=== PATIENT | male | born 1960 | race African-American/Black ===

== ENCOUNTER 2020-01-08 18:41 | Emergency (ER) | payer OTHER ==
[~2020-01-08] VITALS: Ht 185.4 cm; Wt 97.3 kg
[2020-01-08 18:41] VITALS: BP 123/75
[2020-01-08] MEDS ORDERED: METF-960 PO (18:56)
[2020-01-08 18:59] LABS: GLUCOSE,POINT OF CARE 146 MG/DL (70-110)
== END 2020-01-08 21:31 | disposition home or self-care (01) ==
LOC: EMS 18:42
DX: J11.1 Influenza due to unidentified influenza virus with other respiratory manifestations (principal); Z79.84 Long term (current) use of oral hypoglycemic drugs

== ENCOUNTER 2020-08-14 02:27 | Emergency (ER) | payer OTHER ==
[~2020-08-14] VITALS: Ht 188 cm; Wt 102.3 kg
[~2020-08-14 02:27] MED LIST: METF-960 PO
[2020-08-14] MEDS ORDERED: LORazepam 2 MG/ML VIAL IVP ONE (03:00)
[2020-08-14] MEDS ORDERED: SODIUM CHLORIDE 0.9% 1,000 ML IV ONE (03:00)
[2020-08-14] MEDS ORDERED: PERTUSS(ACELL),DIPH,TET VAC/PF 0.5 ML VIAL IM ONE (03:00)
[2020-08-14] MEDS ORDERED: SODIUM CHLORIDE 0.9% 250 ML IRRIG SOLUTION BOTTLE IRRIG ONE (03:00)
[2020-08-14 03:27] LABS: BASOPHILS % (AUTO) 0.7 % (0.0-2.0); EOSINOPHILS % (AUTO) 4.6 % (1.0-6.0); HEMATOCRIT 44.2 % (41-53); HEMOGLOBIN 14.7 g/dL (13.5-17.5); LYMPHOCYTES # (AUTO) 2.4 K/uL (1.0-4.8); MEAN CORPUSCULAR HGB CONC 33.3 G/dL (31.0-37.0); MEAN CORPUSCULAR VOLUME 93 fL (80-100); MONOCYTES # (AUTO) 0.5 K/uL (0.1-1.0); NEUTROPHILS # (AUTO) 3.3 K/uL (1.8-7.7); NEUTROPHILS % (AUTO) 50.7 % (40.0-70.0); PLATELET COUNT (AUTO) 176 K/uL (150-450); RED BLOOD CELL COUNT(AUTO) 4.75 MIL/uL (4.50-5.90); RED CELL DISTRIBUTION WIDTH 12.7 % (11.5-14.5)
[2020-08-14 03:38] LABS: PROTHROMBIN TIME 10.6 SEC (9.4-11.6)
[2020-08-14 04:01] LABS: ALANINE AMINOTRANSFERASE 25 U/L (12-78); ALKALINE PHOSPHATASE 64 U/L (46-116); ASPARTATE AMINOTRANSFERASE 13 U/L (15-37); BILIRUBIN,TOTAL 0.2 mg/dL (0.1-1.0); CARBON DIOXIDE 22 mmol/L (22-29); CREATININE 0.97 mg/dL (0.60-1.30); GLOMERULAR FILTR. RATE CALC > 60 mL/min (>60); GLUCOSE,RANDOM 158 mg/dL (70-110); TOTAL PROTEIN, SERUM 7.8 g/dL (6.4-8.2); UREA NITROGEN, BLOOD 17 mg/dL (7-18)
[2020-08-14 04:09] LABS: ANION GAP 13 mmol/L (8-16); CHLORIDE 100 mmol/L (98-107); POTASSIUM 3.7 mmol/L (3.5-5.1); SODIUM SERUM 135 mmol/L (136-145)
[2020-08-14] MEDS ORDERED: LIDOCAINE 1%/EPI 1:200,000/PF 10 ML VIAL INJ ONE (06:15)
[2020-08-14 06:49] VITALS: BP 120/71
[2020-08-14 07:11] LABS: GLUCOSE,POINT OF CARE 90 MG/DL (70-110)
== END 2020-08-14 07:37 | disposition home or self-care (01) ==
LOC: EMS 02:27
DX: S01.01XA Laceration without foreign body of scalp, initial encounter (principal); F10.129 Alcohol abuse with intoxication, unspecified; E11.9 Type 2 diabetes mellitus without complications; Z79.84 Long term (current) use of oral hypoglycemic drugs; W01.0XXA Fall on same level from slipping, tripping and stumbling without subsequent striking against object, initial encounter; Y93.89 Activity, other specified; Y92.89 Other specified places as the place of occurrence of the external cause; Y99.8 Other external cause status; Y90.8 Blood alcohol level of 240 mg/100 ml or more
CPT/HCPCS: 12005; 36415; 70450; 72125; 80053; 82962; 84484; 85025; 85610; 85730; 90471; 90715; 93005; 96361; 96374; 99285; G0480; J2060; J3490; J7030